=== PATIENT | male | born 1945 | race Two or more races ===

== ENCOUNTER 2016-12-26 07:42 | Inpatient (IN) | payer MEDICARE, OTHER ==
[~2016-12-26] VITALS: Ht 175.3 cm; Wt 85.3 kg
[2016-12-26] VITALS (14 sets, daily range): BP systolic 107–167; BP diastolic 71–98
[2016-12-26] MEDS ORDERED: LORAZEPAM INJ 2 MG/ML VIAL ONE (07:50)
[2016-12-26] MEDS ORDERED: LORAZEPAM INJ 2 MG/ML VIAL IV ONE ×2 (08:00→18:00)
[2016-12-26] MEDS ORDERED: IV NS 0.9% 1,000 ML BAG IV ONE ×2 (08:00→10:00)
--- NOTE | 2016-12-26 08:00 | NUR ---
PT TO ED ROOM 05.BIB RA, WAS ON LAWN ALTERED, LAST KNOWN WELL THIS MORNING,BS IS ELEVATED >650. SIDE RAISL UP. HOB ELEVATED. CONNECTED TO MONITOR. SAFETY PRECAUTIONS INITIATED. NEUROCHECKS Q 15 MIN. SEEN AND EVALUIATED BY ED PROVIDER.
[2016-12-26 08:05] LABS: BASOPHILS % (AUTO) 0.3 % (0.0-2.0); EOSINOPHILS % (AUTO) 0.2 % (0.0-6.0); HEMATOCRIT 41 % (39-51); HEMOGLOBIN 13.9 g/dL (13.5-17.5); LYMPHOCYTES # (AUTO) 1.1 /CMM (0.8-4.8); LYMPHOCYTES % (AUTO) 11.4 % (20.0-44.0); MEAN CORPUSCULAR HEMOGLOBIN 30 PG (26.0-33.0); MEAN CORPUSCULAR HGB CONC 34 g/dl (31.0-36.0); MEAN CORPUSCULAR VOLUME 89 fL (80-96); MONOCYTES # (AUTO) 0.3 /CMM (0.1-1.30); MONOCYTES % (AUTO) 2.8 % (2.0-12.0); NEUTROPHILS # (AUTO) 8.4 /CMM (1.8-8.9); NEUTROPHILS % (AUTO) 85.3 % (43.0-81.0); PLATELET COUNT (AUTO) 198 /CMM (150-450); RDW COEFFICIENT OF VARIATION 13.1 (11.5-15.0); RED BLOOD CELL COUNT(AUTO) 4.61 MIL/uL (4.5-6.0); WHITE BLOOD COUNT (AUTO) 9.8 K/uL (4.3-11.0)
[2016-12-26 08:21] LABS: ALANINE AMINOTRANSFERASE 26 U/L (12-78); ALBUMIN 2.9 g/dL (3.4-5.0); ALCOHOL, BLOOD < 3 mg/dL (0-0); ALKALINE PHOSPHATASE 101 U/L (46-116); ASPARTATE AMINOTRANSFERASE 22 U/L (15-37); BILIRUBIN,DIRECT 0.1 mg/dL (0.0-0.2); BILIRUBIN,TOTAL 0.7 mg/dL (0.2-1.0); CALCIUM, SERUM 8.9 mg/dL (8.5-10.1); CARBON DIOXIDE 25 mmol/L (21-32); CHLORIDE 97 mmol/L (98-107); POTASSIUM 4.3 mmol/L (3.5-5.1); SODIUM SERUM 132 mmol/L (136-145); TOTAL PROTEIN, SERUM 6.7 g/dL (6.4-8.2); TROPONIN I 0.029 ng/mL (0.00-0.056); UREA NITROGEN, BLOOD 22 mg/dL (7-18)
[2016-12-26 08:23] LABS: GLUCOSE 743 mg/dL (74-106); SALICYLATE 2.7 mg/dL (2.8-20.0)
[2016-12-26 08:24] LABS: ACETAMINOPHEN 0 ug/ml (10-30)
--- NOTE | 2016-12-26 08:24 | NUR ---
HOLD OLMOS CATHETER FOR NOW. PT IS ABLE TO URINATE IN URINAL. DR ROTHMAN IS NOTIFIED.
[2016-12-26 08:26] LABS: INR 0.93 (0.87-1.13); PROTHROMBIN TIME 9.9 SECS (9.5-12.7)
[2016-12-26 08:27] LABS: PARTIAL THROMBOPLASTIN TIME < 20 SEC (23-34)
--- NOTE | 2016-12-26 08:42 | NUR ---
Patient is resting comfortably in bed with eyes closed. Easily aroused. VSS
[2016-12-26] MEDS ORDERED: INSULIN REGULAR, HUMAN 100 UNIT/ML 10 ML VIAL SQ ONE ×2 (09:00→10:00)
[2016-12-26] MEDS ORDERED: ASPIRIN 81 MG TAB.CHEW PO ONE ×2 (09:00→12:00)
[2016-12-26] MEDS ORDERED: ENALAPRILAT INJ (1.25 MG/ML) 1.25 MG/ML VIAL IV PRN ×2 (09:00→10:00)
[2016-12-26 09:09] LABS: APPEARANCE,URINE CLEAR (CLEAR); BILIRUBIN,URINE NEGATIVE (NEGATIVE); BLOOD, URINE 2+ Ery/uL (NEGATIVE); COLOR,URINE YELLOW (YELLOW); KETONES,URINE 1+ (NEGATIVE); LEUKOCYTE ESTERASE ,URINE NEGATIVE (NEGATIVE); NITRITE, URINE NEGATIVE (NEGATIVE); PROTEIN,URINE 3+ mg/dl (NEGATIVE); UGLUCOSE 3+ mg/dL (NEGATIVE); UROBILINOGEN,URINE 0.2 EU/dL (0.2)
[2016-12-26 09:19] LABS: WBC,URINE 0-2 /HPF (0-3)
[2016-12-26 09:20] LABS: BACTERIA,URINE Rare /HPF (None Seen); SQUAMOUS EPITHELIAL CELL,UR Rare /HPF (None Seen); YEAST,URINE Few /HPF (None Seen)
--- NOTE | 2016-12-26 09:20 | NUR ---
PANEL ON-CALL PAGED
[2016-12-26 09:21] LABS: MUCUS,URINE Few /LPF (None Seen)
[2016-12-26] MEDS ORDERED: IV NS 0.9% 1,000 ML ONE (09:50)
[2016-12-26] MEDS ORDERED: INSULIN REGULAR, HUMAN 100 UNIT/ML 10 ML VIAL ONE (09:50)
[2016-12-26] MEDS ORDERED: ENALAPRILAT DIHYD. (2.5MG/ML) 1.25 MG/ML VIAL IV ONE (09:50)
[2016-12-26] MEDS ORDERED: IV SET PRIMARY 1 EA INFUS.SET MC ONE (09:50)
--- NOTE | 2016-12-26 10:11 | NUR ---
Patient is resting comfortably in bed.
[2016-12-26 10:49] LABS: CHOLESTEROL 193 mg/dL (<200); HDL CHOLESTEROL 49 mg/dL (40-60); LDL 103 mg/dL (0-99); TRIGLYCERIDES 270 mg/dL (30-150)
[2016-12-26] MEDS ORDERED: INSULIN REGULAR, HUMAN 100 UNIT in IV NS 0.9% 99 ML IV PRN ×2 (11:00)
--- NOTE | 2016-12-26 11:09 | NUR ---
LOST AND FOUND CLERK WILL BE IN AFTER 3.30PM,NURSE BERKLEY IS AWARE.
[2016-12-26] MEDS ORDERED: IV NS 0.9% 1,000 ML IV PRN ×2 (11:30)
--- NOTE | 2016-12-26 11:44 | NUR ---
REPORT TO ALLAN CONTRERAS;A ICU 256
[2016-12-26] MEDS ORDERED: ASPIRIN 325 MG TABLET PO ONE (12:00)
[2016-12-26] MEDS ORDERED: BLOOD SUGAR DIAGNOSTIC 1 EACH STRIP IN SCH ×2 (12:00)
--- NOTE | 2016-12-26 12:00 | NUR ---
ICU/RN: PT RECEIVED VIA GURNEY, BREATHING EVEN AND UNLABORED ON O2 2L/MIN VIA NC; RESPONDS TO TOUCH, DOES NOT KNOW OWN NAME, SEDATED AND LETHARGIC, UNABLE TO FOLLOW COMMANDS, S/P ATIVAN ADMINISTRATION FOR SEDATION DURING HEAD CT.NEW IV HL INSERTED R AC #20; FC INSERTED, DRAINING CLEAR YELLOW URINE TO GRAVITY. FOR FULL NSG ASSESSMENT REFER TO FLOWSHEET.
[2016-12-26] MEDS ORDERED: SECONDARY IV SET 1 EA INFUS.SET MC ONE (12:34)
[2016-12-26 13:31] LABS: THYROID STIMULATING HORMONE 1.679 uIU/mL (0.358-3.74)
[2016-12-26] MEDS ORDERED: IV SET PRIMARY PUMP SET 1 EA INFUS.SET MC ONE ×2 (14:03→14:35)
--- NOTE | 2016-12-26 14:09 | NUR ---
TRIED MRI SCANNING PATIENT CLAUSTRO AND UNABLE TO HOLD STILL, MAYBE SECOND TRY TOMORROW.NURSE ELLIOTT IS AWARE.
[2016-12-26 14:46] LABS: CALCIUM, SERUM 8.3 mg/dL (8.5-10.1); CREATININE 1.7 mg/dL (0.6-1.3); POTASSIUM 3.1 mmol/L (3.5-5.1)
--- NOTE | 2016-12-26 15:00 | NUR ---
ICU/RN: BARREL RIFLER BROACH RECEIVED PHONE CALL FROM SATURNINO DOYLE WHO CALLED 911 WHEN PT WAS FOUND ALTERED IN [place]. STATES THAT PT DOES NOT HAVE ANY IMMEDIATE FAMILY, HOWEVER LIVES WITH HIS SIGNIFICANT OTHER. STATES THAT THERE ARE "CHILDREN CLAIMING TO BE HIS GRANDDAUGHTER BUT THEY ARE NOT RELATED." VISITOR NAMED MARIUM AT BEDSIDE STATES THAT SHE IS DPOA, AND THE ADOPTIVE GRANDDAUGHTER OF PT. INSTRUCTED BY ANEESH MARS TO BRING DPOA PAPERWORK WELL HOME MEDS FOR PT. SOCIAL SERVICE CONSULT REQUESTED BY ANEESH.
[2016-12-26 15:01] LABS: TROPONIN I 0.082 ng/mL (0.00-0.056)
[2016-12-26] MEDS: BLOOD SUGAR DIAGNOSTIC 1 EACH STRIP IN SCH ×9 (15:22→23:00)
[2016-12-26] MEDS ORDERED: ACETAMINOPHEN 325 MG TABLET PO PRN (16:00)
--- NOTE | 2016-12-26 16:00 | NUR ---
ICU/RN: PT AWAKE, ALERT TO SELF, FORGETFUL. WITH BILAT EQUAL STRENGTH IN BILAT LOWER EXT; R ARM WEAKNESS NOTED COMPARED TO LEFT. ABLE TO FOLLOW SOME SIMPLE COMMANDS WITH FREQUENT REORIENTATION AND REINFORCEMENT.
[2016-12-26] MEDS: IV NS 0.9% 1,000 ML IV PRN (16:45)
--- NOTE | 2016-12-26 17:40 | NUR ---
ICU/RN: AMY WILSON, KATE CALL BACK; INFORMED THAT MRI BRAIN UNABLE TO BE PERFORMED DT PT AGITATION, RESTLESSNESS, CLAUSTROPHOBIA; PT ALSO ON INSULIN DRIP AND ATTEMPTS TO PULL OUT INVASIVE LINES. ALSO UPDATED ON DR COSTA'S RECOMMENDATIONS. NEW ORDERS NOTED AND CARRIED OUT.
--- NOTE | 2016-12-26 17:55 | NUR ---
ICU/RN: HOT KNIFE FOXING CUTTER AT BEDSIDE.
[2016-12-26] MEDS ORDERED: LORAZEPAM INJ 2 MG/ML VIAL IV PRN (18:00)
[2016-12-26] MEDS: LORAZEPAM INJ 2 MG/ML VIAL IV PRN (20:24)
--- NOTE | 2016-12-26 22:00 | NUR ---
LOW ALTITUDE AIR DEFENSE GUNNER - REC'D PT. ATTEMPTING TO GET OOB, HAD BLE'S OVER SIDERAIL OF BED. WHEN ATTEMPTING TO PLACE PT. BACK IN BED, PT. PULLED ALL WIRING OFF & STARTED CURSING AT STAFF. PT. NEEDED TO BE MOVED ANYHOW, DUE TO O2/SATS NOT REGISTERING. PT.WAS MOVED FROM RM#256 TO RM. # 257. 20:00 TROPONIN - #0.140. DR. NAGY PHONED FOR ORDERS TO RESTRAIN PT. ORDERS REC'D. PT. WAS PLACED ON BILAT. SOFT WRIST RESTRAINTS PER SAFETY PROTOCOL. INSULIN GTT. INFUSING. PT.HAD 5 GOOD BS'S UNDER #130. AWARE. ORDERS REC'D TO D/C INSULIN GTT.-DONE. STARTED ACCUCHECKS Q 6 HRS & MOD.S/S. DX-CVA/HHS. PT.HAS ALITTLE MOUTH DROOP/SLURRED SPEECH, BUT AUDIBLE. PT.IS ON O2/2L/NC. PT.IS STRONG TO ALL 4 EXT, HOWEVER PT'S LUE IS MORE STRONGER THAN RUE. SCD'S ON. PT'S SBP'S ARE LABILE, BUT PT.IS TRASHING AROUND. SR/PAC'S NOTED. NPO. CONT.POC.
[2016-12-27] VITALS (21 sets, daily range): BP systolic 136–188; BP diastolic 61–130
[2016-12-27] MEDS: BLOOD SUGAR DIAGNOSTIC 1 EACH STRIP IN SCH ×4 (00:24→17:55)
[2016-12-27] MEDS ORDERED: DEXTROSE 50%-WATER 50 ML DISP.SYRIN IV PRN ×2 (00:30→20:30)
[2016-12-27] MEDS: LORAZEPAM INJ 2 MG/ML VIAL IV PRN ×2 (00:31→06:17)
[2016-12-27] MEDS: IV NS 0.9% 1,000 ML IV PRN ×2 (00:56→08:45)
[2016-12-27 04:44] LABS: BASOPHILS % (AUTO) 0.2 % (0.0-2.0); EOSINOPHILS % (AUTO) 0.1 % (0.0-6.0); HEMATOCRIT 38 % (39-51); HEMOGLOBIN 12.8 g/dL (13.5-17.5); LYMPHOCYTES # (AUTO) 1.4 /CMM (0.8-4.8); LYMPHOCYTES % (AUTO) 13.2 % (20.0-44.0); MEAN CORPUSCULAR HEMOGLOBIN 30 PG (26.0-33.0); MEAN CORPUSCULAR HGB CONC 34 g/dl (31.0-36.0); MEAN CORPUSCULAR VOLUME 89 fL (80-96); MONOCYTES # (AUTO) 0.6 /CMM (0.1-1.30); MONOCYTES % (AUTO) 5.9 % (2.0-12.0); NEUTROPHILS # (AUTO) 8.6 /CMM (1.8-8.9); NEUTROPHILS % (AUTO) 80.6 % (43.0-81.0); PLATELET COUNT (AUTO) 169 /CMM (150-450); RDW COEFFICIENT OF VARIATION 13.7 (11.5-15.0); RED BLOOD CELL COUNT(AUTO) 4.25 MIL/uL (4.5-6.0); WHITE BLOOD COUNT (AUTO) 10.7 K/uL (4.3-11.0)
[2016-12-27 05:00] LABS: CREATININE 1.5 mg/dL (0.6-1.3)
[2016-12-27 05:13] LABS: THYROID STIMULATING HORMONE 0.669 uIU/mL (0.358-3.74)
[2016-12-27] MEDS ORDERED: BLOOD SUGAR DIAGNOSTIC 1 EACH STRIP IN SCH (06:00)
[2016-12-27] MEDS: INSULIN REGULAR, HUMAN 100 UNIT/ML 3 ML VIAL SQ PRN ×3 (06:33→17:59)
[2016-12-27 07:50] LABS: TROPONIN I 0.115 ng/mL (0.00-0.056)
[2016-12-27 07:52] LABS: MAGNESIUM 1.5 mg/dL (1.8-2.4); PHOSPHORUS 3.8 mg/dL (2.5-4.9)
--- NOTE | 2016-12-27 08:00 | NUR ---
ICU/RN INITIAL NOTES,AM RECEIVED REPORT FROM NIGHT NURSE. PT ALERT, COMBATIVE, ATTEMPTING TO BED OUT OF BED. PT REORIENTED, DISCUSSED IMPORTANCE OF BEING IN HOSPITAL. PT ON NASAL CANULA, NO ACUTE DISTRESS NOTED AT TH IS TIME. PT SINUS ON TELE. NPO AT THIS TIME. SWALLOW EVALUATION PENDING THIS AM. OLMOS CATH IN PLACE, URINE OUTPUT NOTED. BILATERAL WRIST RESTRAINTS IN PLACE SINCE PT IS BEING COMBATIVE, ATTEMPTING TO GET OUT OF BED AND REMOVING MEDICAL LINES. ASSESSED PER PROTOCOL. SKIN INTACT, PT ABLE TO MOVE AND REPOSITION SELF. MRI PENDING, UNABLE TO COMPLETE YESTERDAY DUE TO EXCESSIVE MOVEMENTS DESPITE MEDICATIONS GIVEN, WILL TRY AGAIN TODAY.
[2016-12-27] MEDS ORDERED: IV SET PRIMARY PUMP SET 1 EA INFUS.SET MC ONE (08:40)
[2016-12-27] MEDS: POTASSIUM CL. PREMIX PERIPHER. 50 ML IV SCH ×6 (08:46→19:47)
[2016-12-27] MEDS: ASPIRIN 81 MG TAB.CHEW PO SCH (09:45)
[2016-12-27] MEDS: CARVEDILOL 6.25 MG TABLET PO SCH ×2 (09:45→20:13)
--- NOTE | 2016-12-27 11:00 | NUR ---
ICU/RN: PT BEING COMBATIVE, AGGRESSIVE. ABLE TO PULL OFF BILATERAL WRIST RESTRAINTS. PULLED OUT LEFT PIV. IV FLUIDS INFUSING NOW IN RIGHT PIV. PT EDUCATED REGARDING THE IMPORTACE OF BEING COMPLIANT, PT REFUSES TO LISTEN, SPEAKING TO MYSELF AND DR. COSTA IN A RUDE MANNER, CALLING US NAMES.
[2016-12-27] MEDS ORDERED: Magnesium 1GM/D5W 100ML PREMIX 100 ML IV SCH (11:07)
--- NOTE | 2016-12-27 12:27 | NUR ---
ICU/RN: PT PULLED OUT SECOND PIV, REFUSING A NEW ONE. CALLED GRANDDAUGHTER AND REQUESTED HER TO COME LYNSEY. PT NOT COOPERATING.
[2016-12-27] MEDS ORDERED: NIAC500T23 PO (13:21)
[2016-12-27] MEDS ORDERED: SENN8.6T6 PO (13:21)
[2016-12-27] MEDS ORDERED: OMEP20CA10 PO (13:21)
[2016-12-27] MEDS ORDERED: MAGN400T6 PO (13:21)
[2016-12-27] MEDS ORDERED: ATOR40TA PO (13:21)
[2016-12-27] MEDS ORDERED: ASPI325T2 PO (13:21)
[2016-12-27] MEDS ORDERED: METF500T4 PO (13:21)
[2016-12-27] MEDS ORDERED: METO200T35 PO (13:21)
[2016-12-27] MEDS ORDERED: LISI40TA4 PO (13:21)
[2016-12-27] MEDS ORDERED: LORAZEPAM INJ 2 MG/ML VIAL IV ONE (16:00)
--- NOTE | 2016-12-27 16:20 | NUR ---
ICU/RN: PER MD ORDERS ATIVAN GIVEN PRIOR TO MRI, ADMINISTERED ORDERED
--- NOTE | 2016-12-27 17:30 | NUR ---
ICU to [facility] transfer received patient s/p MRI, patient is drowsy but opens eyes and verbalizes needs and follows command a+ox1. grand daughter at bed side, patient calm at this time. L IV patent, no complications. breathing even and unlabored, o2 sat 94% on room air, patient says he does not want supplemental o2 at this time. vs noted in long form. no complications with f/c, draining well. plan to administer 2 potassium and 1 magnesium bags. discussed plan of care. assessed needs and provided. call light in reach.
--- NOTE | 2016-12-27 17:52 | NUR ---
ICU/RN: POST MRI PT TRANSFERRED TO [facility]. REPORT ENDORSED TO NAHUM PRASAD. ALL NEEDS MET, FAMILY AT BEDSIDE. MEDICATIONS TRANSFERRED WITH PT. PT EDUCATED AND SAFETY MEASURES TAKEN, BED IN LOW POSITION, SIDE RAILS UP, CALL LIGHT WITH REACH. ENDORSED REPORT FOR CONTINUATION OF CARE
--- NOTE | 2016-12-27 19:18 | NUR ---
end of shift patient in stable condition, breathing and LOC stable. grand daughter at bed side. iv patent. f/c wnl. no BM. no aspiration. no new skin break down. gave report to night nurse to continue iv mag and K. call light in reach.
[2016-12-27] MEDS ORDERED: INSU3INS8 SQ (19:23)
[2016-12-27] MEDS ORDERED: INSU100V10 SQ (19:23)
--- NOTE | 2016-12-27 19:30 | NUR ---
RN INITIAL NOTES RECEIVED PT AWAKE ON BED WITH GRAND-DAUGHTERS AT BEDSIDE. PT IS A/O X1-2, CALM RIGHT NOW BUT REPORTEDLY AGGRESSIVE AND CONFUSED WHEN GRAND-DAUGHTERS ARE NOT AT BEDSIDE. PER FAMILY, WILL RE-ATTACH BILATERAL SOFT WRIST RESTRAINTS LATER AT NIGHT. ON ROOM AIR SATURATING WELL. CURRENTLY SR ON THE MONITOR, HR 80'S. OLMOS CATH NOTED. LEFT WRIST 20G WITH NS @ 125MLS/HR, FLUSHED AND PATENT, NO S/S OF INFILTRATION/INFECTION, DRESSING CDI. BED LOW AND LOCKED, SIDERAIL UP. WILL MONITOR
[2016-12-27] MEDS ORDERED: SECONDARY IV SET 1 EA INFUS.SET MC ONE (20:00)
[2016-12-27] MEDS ORDERED: *INSULIN REGULAR(HUMULIN R)HUM 100 UNIT/ML VIAL SQ PRN (20:30)
[2016-12-27] MEDS ORDERED: INSULIN DETEMIR 100 UNIT/ML CARTRIDGE SQ SCH (22:00)
--- NOTE | 2016-12-27 22:10 | NUR ---
RN NOTES GAVE REPORT TO NAHUM PRASAD FOR PATIENT'S CONTINUITY OF CARE
--- NOTE | 2016-12-27 22:15 | NUR ---
[facility] RN INITIAL NOTE RECEIVED PT IN BED RESTING. WILL CONTINUE TO MONITOR.
--- NOTE | 2016-12-27 23:00 | NUR ---
[facility] RN NOTE PT FOUND WITH OLMOS CATHETER AND IV PULLED OUT. PT CONFUSED AND REORIENTED. BILATERAL SOFT WRIST RESTRAINTS BACK ON THE PT. PT COOPERATIVE WITH C/O MILD PAIN. LAUNDRY SUPERINTENDENT [place] [employer] ARCHITECT NOTIFIED WITH ORDERS TO NOT REINSERT OLMOS CATHETER AT THIS TIME. ORDERS TO WATCH FOR URINARY RETENTION AND PASSING OF BLOOD CLOTS FOR THE NEXT 6 HRS. IF NO URINE PRESENT MAY USE BLADDER SCANNER. IF RETAINING >300ML OF URINE TO CALL BACK FOR FURTHER ORDERS. ORDERS READ BACK. NOTED AND CARRIED OUT. WILL CONTINUE TO MONITOR.
[2016-12-27] MEDS: BLOOD SUGAR DIAGNOSTIC 1 EACH STRIP VI SCH (23:01)
[2016-12-28] VITALS: BP_SYST 168; BP_SYST 186; BP_DIAS 86
[2016-12-28] MEDS: IV NS 0.9% 1,000 ML IV PRN ×2 (00:15→09:39)
[2016-12-28] MEDS: LORAZEPAM INJ 2 MG/ML VIAL IV PRN (03:58)
[2016-12-28 04:00] VITALS: BP 174/107
[2016-12-28 06:27] LABS: BASOPHILS % (AUTO) 0.3 % (0.0-2.0); EOSINOPHILS # (AUTO) 0.2 /CMM (0.0-0.7); EOSINOPHILS % (AUTO) 2.4 % (0.0-6.0); HEMATOCRIT 34 % (39-51); HEMOGLOBIN 11.7 g/dL (13.5-17.5); LYMPHOCYTES # (AUTO) 1.6 /CMM (0.8-4.8); LYMPHOCYTES % (AUTO) 16.9 % (20.0-44.0); MEAN CORPUSCULAR HEMOGLOBIN 31 PG (26.0-33.0); MEAN CORPUSCULAR HGB CONC 35 g/dl (31.0-36.0); MEAN CORPUSCULAR VOLUME 88 fL (80-96); MONOCYTES # (AUTO) 0.5 /CMM (0.1-1.30); MONOCYTES % (AUTO) 5.5 % (2.0-12.0); NEUTROPHILS % (AUTO) 74.9 % (43.0-81.0); PLATELET COUNT (AUTO) 141 /CMM (150-450); RDW COEFFICIENT OF VARIATION 13.5 (11.5-15.0); RED BLOOD CELL COUNT(AUTO) 3.84 MIL/uL (4.5-6.0); WHITE BLOOD COUNT (AUTO) 9.3 K/uL (4.3-11.0)
[2016-12-28 06:39] LABS: ALBUMIN 1.9 g/dL (3.4-5.0); BILIRUBIN,TOTAL 0.7 mg/dL (0.2-1.0); CALCIUM, SERUM 7.7 mg/dL (8.5-10.1); CREATININE 1.4 mg/dL (0.6-1.3); MAGNESIUM 1.7 mg/dL (1.8-2.4); PHOSPHORUS 3.2 mg/dL (2.5-4.9); POTASSIUM 3.1 mmol/L (3.5-5.1); TOTAL PROTEIN, SERUM 4.7 g/dL (6.4-8.2)
[2016-12-28 06:44] LABS: TROPONIN I 0.062 ng/mL (0.00-0.056)
[2016-12-28] MEDS: BLOOD SUGAR DIAGNOSTIC 1 EACH STRIP VI SCH ×2 (06:48→11:52)
[2016-12-28] MEDS: INSULIN REGULAR, HUMAN 100 UNIT/ML 3 ML VIAL SQ PRN ×2 (06:52→11:56)
--- NOTE | 2016-12-28 06:53 | NUR ---
[facility] RN CLOSING NOTE PT REMAINED STABLE DURING SHIFT WITH EPISODES OF CONFUSION AND AGGRESSIVE BEHAVIOR. BILATERAL SOFT WRIST RESTRAINTS ON. NO DISCOLORATION NOTED. CHECKED CAP REFILL AND CIRCULATION. NO C/O PAIN NOTED. PT URINATED X2 IN DIAPER AFTER REMOVAL OF OLMOS CATHETER. NOTED WITH SLIGHT HEMATURIA. WILL ENDORSE TO NEXT SHIFT FOR CONT OF CARE.
--- NOTE | 2016-12-28 07:05 | NUR ---
[facility] INITIAL NOTES RECEIVED PT RESTING IN BED. PT A/O X2 WITH OCC CONFUSION. ON 2L NC, RESPIRATIONS EVEN AND UNLABORED, NO SOB OR DISTRESS PRESENT. TELE MONITOR REVEALS SINUS RHYTHM WITH OCC PACS, HR= 87. LAC 20G RUNNING NS @ 125 MLS/HR. IV SITE FLUSHED, PATENT, INTACT AND FREE OF REDNESS, SWELLING AND INFLAMMATION. PT INCONTINENT OF URINE & STOOL, DIAPER IS CLEAN & DRY. SAFETY MEASURES TAKEN: BED LOCKED AND IN LOW POSITION, SIDE RAILS UP X2, BED ALARM ON AND CALL LIGHT WITHIN REACH, WILL CONTINUE TO MONITOR.
[2016-12-28 08:00] VITALS: BP 161/84
[2016-12-28] MEDS ORDERED: CARVEDILOL 6.25 MG TABLET PO SCH (09:00)
[2016-12-28] MEDS ORDERED: IV SET PRIMARY PUMP SET 1 EA INFUS.SET MC ONE (09:33)
[2016-12-28] MEDS: Magnesium 1GM/D5W 100ML PREMIX 100 ML IV SCH ×2 (09:40→10:40)
[2016-12-28] MEDS: POTASSIUM CL. PREMIX PERIPHER. 50 ML IV SCH ×5 (09:41→13:51)
[2016-12-28] MEDS: ASPIRIN 81 MG TAB.CHEW PO SCH (09:47)
--- NOTE | 2016-12-28 11:30 | NUR ---
PT'S GRANDDAUGHTER AT BEDSIDE. WOULD LIKE TO SPEAK TO A ELECTRIC WELDER REGARDING BILLING CONCERNS SINCE PT IS A MEMBER OF THE [employer]. CASE MANAGEMENT CONSULT PLACED. WILL CONTINUE TO MONITOR.
[2016-12-28 12:00] VITALS: BP 131/89
--- NOTE | 2016-12-28 15:45 | NUR ---
DISCHARGE NOTE: PT DISCHARGED TO HOME IN STABLE CONDITION VIA PRIVATE AUTOMOBILE, ACCOMPANIED BY MARIUM LEE. PT DENIES PAIN OR DISCOMFORT. VITAL SIGNS STABLE. IV REMOVED. ALL BELONGINGS SENT WITH PATIENT. DISCHARGE INSTRUCTIONS & PACKET REVIEWED WITH PT AND MARIUM LEE. ALL QUESTIONS ANSWERED.
[2016-12-28] MEDS ORDERED: ATORVASTATIN 40 MG TABLET PO SCH (22:00)
== END 2016-12-28 15:40 | disposition home health service (06) | DRG 637 ==
LOC: ER 07:43 → TELE-TD 10:50 → ICU 11:28 → TELE1 12-27 16:48 → TELE-TD 12-27 17:59 → TELE1 12-28 08:00
PROVIDERS: ADMIT Nurse Practitioner Acute Care; ATTEND Nurse Practitioner Acute Care
DX: E11.00 Type 2 diabetes mellitus with hyperosmolarity without nonketotic hyperglycemic-hyperosmolar coma (NKHHC) (principal); I21.4 Non-ST elevation (NSTEMI) myocardial infarction; G93.41 Metabolic encephalopathy; N17.0 Acute kidney failure with tubular necrosis; E44.0 Moderate protein-calorie malnutrition; E87.2 Acidosis; E83.42 Hypomagnesemia; E11.65 Type 2 diabetes mellitus with hyperglycemia; I10 Essential (primary) hypertension; R29.6 Repeated falls; E88.09 Other disorders of plasma-protein metabolism, not elsewhere classified; E87.6 Hypokalemia; Z68.27 Body mass index [BMI] 27.0-27.9, adult; R41.0 Disorientation, unspecified; I34.0 Nonrheumatic mitral (valve) insufficiency
CPT/HCPCS: 36415; 70450-TC; 70551-TC; 71010-TC; 80048-TC; 80053-TC; 80061-TC; 80076-TC; 80305; 81000-TC; 82306; 82962-TC; 83735-TC; 84100-TC; 84439-TC; 84443-TC; 84484-TC; 85025-TC; 85730-TC; 87040-TC; 92521; 92526; 93307-TC; 93880-TC; 94799-TC; 95819-TC; 97001-TC; 97003-TC; A4606; G0480; J1815; J2060; J3475; J3480; J3490; J7030; Z7610